=== PATIENT | female | born 1995 | race American Indian/Alaskan Native ===

== ENCOUNTER 2017-03-18 12:53 | Emergency (ER) | payer OTHER ==
[2017-03-18 13:05] VITALS: RESP 18; O2SAT 100; BMI 18.1
[2017-03-18] MEDS ORDERED: Sodium Chloride 0.9% 1,000 ML IV ONE (13:33)
--- NOTE | 2017-03-18 13:42 | C.PDOC ---
History Of Present Illness 21 y/o female presents to ED with complaints of abdominal pain followed with N/V /D for x2 weeks. Patient denies any current complaints, fever, chills or recent travel. No other complaints at this time. Time Seen by Provider: 03/18/17 13:20 Chief Complaint (Nursing): GI Problem History Per: Patient History/Exam Limitations: no limitations Onset/Duration Of Symptoms: Days Current Symptoms Are (Timing): Still Present Associated Symptoms: Nausea, Vomiting, Diarrhea Past Medical History Reviewed: Historical Data, Nursing Documentation, Vital Signs Vital Signs: Last Vital Signs Temp 98.1 F 03/18/17 13:05 Pulse 71 03/18/17 13:05 Resp 18 03/18/17 13:05 BP 110/75 03/18/17 13:05 Pulse Ox 100 03/18/17 15:01 - Medical History PMH: - [facility] Procedures CERVICAL LES CAUTERIZAT (02/02/15) Family History: States: Unknown Family Hx - Social History Hx Tobacco Use: Yes Hx Alcohol Use: Yes Hx Substance Use: No - Immunization History Hx Tetanus Toxoid Vaccination: No Hx Influenza Vaccination: No Hx Pneumococcal Vaccination: No Review Of Systems Except As Marked, All Systems Reviewed And Found Negative. Constitutional: Negative for: Fever, Chills Cardiovascular: Negative for: Chest Pain Respiratory: Negative for: Shortness of Breath Gastrointestinal: Positive for: Nausea, Vomiting, Abdominal Pain, Diarrhea Skin: Negative for: Rash Neurological: Negative for: Dizziness Physical Exam - Physical Exam Appears: Non-toxic, No Acute Distress Skin: Normal Color, Warm Head: Atraumatic, Normacephalic Oral Mucosa: Moist Neck: Normal ROM Cardiovascular: Rhythm Regular Respiratory: Normal Breath Sounds, No Rales, No Rhonchi, No Wheezing Gastrointestinal/Abdominal: Soft, No Tenderness, No Guarding, No Rebound Extremity: Normal ROM Neurological/Psych: Oriented x3, Normal Speech, Normal Cognition ED Course And Treatment - Laboratory Results Result Diagrams: 03/18/17 13:54 03/18/17 13:54 O2 Sat by Pulse Oximetry: 100 (Room air ) Pulse Ox Interpretation: Normal Medical Decision Making Medical Decision Making: abd pain/n/v/d, - pt denies all complaints at this time. abd soft no ttp. will eval with labs, fluids reassess 300: abd remains soft. no ttp. labs unremarkble. advise outpt f/u and return precautions. pt eating in nad. on phone Disposition - Disposition Referrals: Jose D Hagen MD [Staff Provider] - Disposition: HOME/ ROUTINE Disposition Time: 14:59 Condition: STABLE Additional Instructions: please follow up with your doctor/clinic and specialist. return to er with worsening symptoms or concerns. 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 MD/DO has examined the patient and agrees with the treatment plan. - Scribe Statement The provider has reviewed the documentation as recorded by the Shirleyibmirian Braden All medical record entries made by the Shirleyibmirian were at my direction and personally dictated by me. I have reviewed the chart and agree that the record accurately reflects my personal performance of the history, physical exam, medical decision making, and the department course for this patient. I have also personally directed, reviewed, and agree with the discharge instructions and disposition.
[2017-03-18 14:05] LABS: BASO % 1.1 % (0.0-2.0); EOS # 0.2 K/uL (0.0-0.7); EOS % 4.8 % (0.0-4.0); HEMATOCRIT 43.1 % (34.0-47.0); LYMPH # 1.4 K/uL (1.0-4.3); MEAN CELL VOLUME 92.2 fL (81.0-99.0); MEAN CORPUSCULAR HEMOGLOBIN 30.4 pg (27.0-31.0); MEAN CORPUSCULAR HGB CONC 32.9 g/dL (33.0-37.0); MEAN PLATELET VOLUME 9.7 fL (7.2-11.7); MONO # 0.4 K/uL (0.0-0.8); MONO % 9.5 % (0.0-10.0); NRBC % 0.1 % (0.0-2.0); RED CELL DISTRIBUTION WIDTH 13.8 % (11.5-14.5); WHITE BLOOD COUNT 4.5 K/uL (4.8-10.8)
[2017-03-18 14:16] LABS: CHLORIDE 98 mmol/L (98-107); SODIUM 138 mmol/L (132-148)
[2017-03-18 14:17] LABS: POTASSIUM 3.7 mmol/L (3.6-5.2)
[2017-03-18 14:19] LABS: ALB/GLOB RATIO 1.6 (1.0-2.1); ALKALINE PHOSPHATASE 63 U/L (38-126); ALT/SGPT 29 U/L (9-52); AST/SGOT 27 U/L (14-36); BILIRUBIN,TOTAL 0.6 mg/dL (0.2-1.3); BLOOD UREA NITROGEN 11 mg/dL (7-17); CALCIUM 8.9 mg/dl (8.6-10.4); CARBON DIOXIDE 28 mmol/L (22-30); GFR AFRICAN-AMERICAN > 60; GLUCOSE,RANDOM 70 mg/dL (65-105); TOTAL PROTEIN 7.9 g/dL (6.3-8.3)
[2017-03-18] MEDS ORDERED: Sodium Chloride 0.9% 1,000 ML ONE (14:28)
[2017-03-18 14:34] LABS: RBC URINE 1 /hpf (0-3); URINE BILIRUBIN NEGATIVE (NEGATIVE); URINE BLOOD NEGATIVE (NEGATIVE); URINE COLOR Yellow (YELLOW); URINE GLUCOSE (UA) NORMAL (Normal); URINE KETONE NEGATIVE (NEGATIVE); URINE LEUKOCYTE ESTERASE 1+ Leu/uL (Negative); URINE PROTEIN NEGATIVE (NEGATIVE); URINE UROBILINOGEN NORMAL mg/dL (0.2-1.0); WBC URINE 3 /hpf (0-5)
[2017-03-18 15:22] VITALS: BP 107/63; PULSE 68; TEMP 97.7
== END 2017-03-18 15:25 | disposition home or self-care (01) ==
LOC: C.ER 12:53
DX: R10.9 Unspecified abdominal pain (principal)
CPT/HCPCS: 80053; 81001; 83690; 84703; 85025; 85610; 85730; 96374; 99284; J2405; J7040

== ENCOUNTER 2017-03-25 15:15 | Emergency (ER) | payer MEDICAID, OTHER ==
[2017-03-25 15:33] VITALS: BMI 17.8
[2017-03-25 15:40] VITALS: RESP 18; O2SAT 100
[2017-03-25] MEDS ORDERED: Sodium Chloride 0.9% 1,000 ML IV ONE (15:52)
--- NOTE | 2017-03-25 16:10 | C.PDOC ---
History Of Present Illness 23 year old patient presents to the ED complaining of irregular vaginal bleeding for the past 3 weeks. Patient went to Dr. Cespedes's office today where an ultrasound was done. It showed a large cyst. Patient was sent here for further evaluation. Patient denies fever, nausea, vomiting, abdominal pain, diarrhea, urinary symptoms, pelvic pain, or back pain. Time Seen by Provider: 03/25/17 15:44 Chief Complaint (Nursing): Female Genitourinary History Per: Patient History/Exam Limitations: no limitations Onset/Duration Of Symptoms: Other (3 weeks) Current Symptoms Are (Timing): Still Present Severity: None Pain Scale Rating Of: 0 Quality Of Discomfort: Unable To Describe Alleviating Factors: None Recent travel outside of the [place]: No Abnormal Vaginal Bleeding: Yes Last Menstral Period: started 3 weeks ago Past Medical History Reviewed: Historical Data, Nursing Documentation, Vital Signs Vital Signs: Last Vital Signs Temp 98.0 F 03/25/17 17:42 Pulse 60 03/25/17 17:42 Resp 18 03/25/17 17:42 BP 111/74 03/25/17 17:42 Pulse Ox 100 03/25/17 17:42 - Medical History PMH: No Chronic Diseases Surgical History: No Surg Hx - [facility] Procedures CERVICAL LES CAUTERIZAT (02/02/15) Family History: States: Unknown Family Hx - Social History Hx Tobacco Use: Yes Hx Alcohol Use: Yes Hx Substance Use: No - Immunization History Hx Tetanus Toxoid Vaccination: No Hx Influenza Vaccination: No Hx Pneumococcal Vaccination: No Review Of Systems Except As Marked, All Systems Reviewed And Found Negative. Constitutional: Negative for: Fever Gastrointestinal: Negative for: Nausea, Vomiting, Abdominal Pain, Diarrhea Genitourinary: Positive for: Vaginal Bleeding. Negative for: Dysuria, Hematuria , Pelvic Pain Musculoskeletal: Negative for: Back Pain Physical Exam - Physical Exam Appears: Non-toxic, No Acute Distress Skin: Warm, Dry Head: Atraumatic, Normacephalic Oral Mucosa: Moist Neck: Normal ROM, Supple Chest: Symmetrical Cardiovascular: Rhythm Regular Respiratory: Normal Breath Sounds, No Rales, No Rhonchi, No Wheezing Gastrointestinal/Abdominal: Soft, No Tenderness, No Guarding, No Rebound Back: Normal Inspection, No CVA Tenderness Extremity: Normal ROM Neurological/Psych: Oriented x3, Normal Speech, Normal Cognition Gait: Steady ED Course And Treatment - Laboratory Results Result Diagrams: 03/25/17 16:14 03/25/17 16:14 Lab Interpretation: Normal Urine POC: Negative O2 Sat by Pulse Oximetry: 100 (room air ) Pulse Ox Interpretation: Normal - CT Scan/US No standard instances Other Rad Studies (CT/US): Read By Radiologist, Radiology Report Reviewed CT/US Interpretation: FINDINGS: UTERUS: Measures 7.2 x 3.4 x 4.7 cm. Normal in size and appearance. No fibroid or other mass lesion seen. ENDOMETRIUM: Measures 9 mm in diameter. Unremarkable. CERVIX: No cervical abnormality identified. RIGHT OVARY: Measures 5.5 x 4.2 x 5.3 cm. No solid mass. Normal flow. Complex cyst with heterogeneous internal low-level echoes, 4.7 x 3.3 x 4.1 cm. Probable resolving hemorrhagic cyst. Followup advised in 6-8 weeks with transvaginal pelvic ultrasound. LEFT OVARY: Measures 3.5 x 2.4 x 3.1 cm. No solid mass. Normal flow. FREE FLUID: Small amount of free fluid in pelvis. OTHER FINDINGS: None. IMPRESSION: Complex 4.7 cm right ovarian cyst, most likely resolving hemorrhagic cyst. Recommend followup transvaginal pelvic ultrasound examination in 6-8 weeks. The remainder of the examination is unremarkable except for small amount of fluid in the pelvis common nonspecific. . Progress Note: Plan: Labs, IV fluids, Transvaginal US. 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 and recommends discharge and follow up with [facility] Reassessment Condition: Improved - Physician Consult Information Physician Contacted: Carmelase Sylvie Covarrubias Outcome Of Conversation: discharge, follow up with MANAGER OF ORGANIZATIONAL DEVELOPMENT Disposition Counseled Patient/Family Regarding: Studies Performed, Diagnosis, Need For Followup, Rx Given - Disposition Disposition: HOME/ ROUTINE Disposition Time: 17:30 Condition: STABLE Additional Instructions: Follow up with your MANAGER OF ORGANIZATIONAL DEVELOPMENT for further evaluation Prescriptions: Naproxen [Naprosyn] 1 tab PO BID PRN #25 tab PRN Reason: Pain Instructions: Ovarian Cyst (ED) - POA Present On Arrival: None - Clinical Impression Clinical Impression: Ovarian cyst - 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 - Scribe Statement The provider has reviewed the documentation as recorded by the Scribe Blessing Estes All medical record entries made by the Scribe were at my direction and personally dictated by me. I have reviewed the chart and agree that the record accurately reflects my personal performance of the history, physical exam, medical decision making, and the department course for this patient. I have also personally directed, reviewed, and agree with the discharge instructions and disposition.
[2017-03-25 16:17] LABS: BASO # 0.1 K/uL (0.0-0.2); BASO % 1.2 % (0.0-2.0); EOS # 0.1 K/uL (0.0-0.7); HEMATOCRIT 39.3 % (34.0-47.0); LYMPH # 1.4 K/uL (1.0-4.3); LYMPH % 24.6 % (20.0-40.0); MEAN CELL VOLUME 92.9 fL (81.0-99.0); MEAN CORPUSCULAR HEMOGLOBIN 31.3 pg (27.0-31.0); MEAN CORPUSCULAR HGB CONC 33.7 g/dL (33.0-37.0); MEAN PLATELET VOLUME 9.3 fL (7.2-11.7); MONO # 0.4 K/uL (0.0-0.8); MONO % 7.4 % (0.0-10.0); WHITE BLOOD COUNT 5.8 K/uL (4.8-10.8)
[2017-03-25 16:38] LABS: RBC URINE 1 /hpf (0-3); URINE BILIRUBIN NEGATIVE (NEGATIVE); URINE BLOOD NEGATIVE (NEGATIVE); URINE COLOR Yellow (YELLOW); URINE GLUCOSE (UA) NORMAL (Normal); URINE KETONE NEGATIVE (NEGATIVE); URINE LEUKOCYTE ESTERASE NEG Leu/uL (Negative); URINE PROTEIN NEGATIVE (NEGATIVE); URINE UROBILINOGEN NORMAL mg/dL (0.2-1.0); WBC URINE 1 /hpf (0-5)
[2017-03-25 16:50] LABS: CHLORIDE 101 mmol/L (98-107); POTASSIUM 4.2 mmol/L (3.6-5.2); SODIUM 138 mmol/L (132-148)
[2017-03-25 16:52] LABS: ALB/GLOB RATIO 1.3 (1.0-2.1); ALKALINE PHOSPHATASE 48 U/L (38-126); ALT/SGPT 15 U/L (9-52); AST/SGOT 21 U/L (14-36); BILIRUBIN,TOTAL 0.6 mg/dL (0.2-1.3); BLOOD UREA NITROGEN 7 mg/dL (7-17); CARBON DIOXIDE 29 mmol/L (22-30); GFR AFRICAN-AMERICAN > 60; TOTAL PROTEIN 7.6 g/dL (6.3-8.3)
[2017-03-25 16:53] LABS: CALCIUM 9.2 mg/dl (8.6-10.4); GLUCOSE,RANDOM 86 mg/dL (65-105)
--- NOTE | 2017-03-25 16:58 | US ---
HISTORY: vaginal bleeding COMPARISON: None available. TECHNIQUE: Transabdominal and transvaginal FINDINGS: UTERUS: Measures 7.2 x 3.4 x 4.7 cm. Normal in size and appearance. No fibroid or other mass lesion seen. ENDOMETRIUM: Measures 9 mm in diameter. Unremarkable. CERVIX: No cervical abnormality identified. RIGHT OVARY: Measures 5.5 x 4.2 x 5.3 cm. No solid mass. Normal flow. Complex cyst with heterogeneous internal low-level echoes, 4.7 x 3.3 x 4.1 cm. Probable resolving hemorrhagic cyst. Followup advised in 6-8 weeks with transvaginal pelvic ultrasound. LEFT OVARY: Measures 3.5 x 2.4 x 3.1 cm. No solid mass. Normal flow. FREE FLUID: Small amount of free fluid in pelvis OTHER FINDINGS: None. IMPRESSION: Complex 4.7 cm right ovarian cyst, most likely resolving hemorrhagic cyst. Recommend followup transvaginal pelvic ultrasound examination in 6-8 weeks. The remainder of the examination is unremarkable except for small amount of fluid in the pelvis common nonspecific. .
[2017-03-25 17:42] VITALS: BP 111/74; PULSE 60; TEMP 98
== END 2017-03-25 17:53 | disposition home or self-care (01) ==
LOC: C.ER 15:15
DX: N83.201 Unspecified ovarian cyst, right side (principal)
CPT/HCPCS: 76830; 76856; 80053; 81001; 84702; 84703; 85025; 96360; 99284; J7040